=== PATIENT | female | born 1975 | race Two or more races ===

== ENCOUNTER 2022-03-07 21:09 | Emergency (ER) | payer MEDICAID ==
[~2022-03-07] VITALS: Ht 154.9 cm; Wt 68.0 kg
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
[2022-03-07] MEDS ORDERED: IBUPROFEN 600 MG TABLET ONE (22:49)
[2022-03-07] MEDS ORDERED: HYDROCODONE/APAP 5/325MG TABLET ONE (22:50)
[2022-03-07] MEDS ORDERED: ONDANSETRON 4 MG TAB.RAPDIS ONE (22:51)
--- NOTE | 2022-03-07 22:52 | NUR ---
PT OUT TO CT
[2022-03-07] MEDS ORDERED: HYDROCODONE/APAP 5/325MG TABLET PO ONE (23:00)
[2022-03-07] MEDS ORDERED: ONDANSETRON 4 MG TAB.RAPDIS SL ONE (23:00)
[2022-03-07] MEDS ORDERED: IBUPROFEN 600 MG TABLET PO ONE (23:00)
[2022-03-07] MEDS ORDERED: HYDR-4209 PO ×2 (23:49)
[2022-03-07] MEDS ORDERED: BACI/NEOM/POLY B OINT PKT 1 UDPKT PACKET ONE (23:57)
[2022-03-08] MEDS ORDERED: BACI/NEOM/POLY B OINT PKT 1 UDPKT PACKET TP ONE
--- NOTE | 2022-03-08 00:12 | NUR ---
PT DISCHARGED IN STABLE CONDITION
--- NOTE | 2022-03-08 00:13 | NUR ---
PT DOSCAHRGED IN STABLE CONDITION
[2022-03-08 00:17] VITALS: BP 130/77
== END 2022-03-08 00:17 | disposition home or self-care (01) ==
LOC: ER 21:19
DX: S80.812A Abrasion, left lower leg, initial encounter (principal); S16.1XXA Strain of muscle, fascia and tendon at neck level, initial encounter; V89.2XXA Person injured in unspecified motor-vehicle accident, traffic, initial encounter; Y93.89 Activity, other specified; Y92.89 Other specified places as the place of occurrence of the external cause; Y99.8 Other external cause status
CPT/HCPCS: 72125; 99284; Q0162